=== PATIENT | female | born 1975 | race Caucasian/White ===

== ENCOUNTER 2016-11-21 19:30 | Inpatient (IN) ==
[2016-11-21] MEDS ORDERED: 0.9 % Sodium Chloride 1,000 ML IVC ONE (20:18)
--- NOTE | 2016-11-21 20:21 | Emergency Department Note ---
Disposition Clinical Impression: Somatic delusion disorder, with bizarre content Disposition: Admitted As Inpatient Condition: Good Time of Disposition: 22:00 General Adult HPI - General Chief complaint: ED Chest Pain Stated complaint: left ear/chest pain Source: patient, family Limitations: no limitations Nursing Notes Reviewed: Yes Vital Signs Reviewed: Yes - History of Present Illness HPI Narrative: History of present illness: 1-year-old female history of opioid addiction currently on Suboxone for "years" . History of low back pain which initially got a narcotic pain pills. Distant history of depression. Presents with a chief complaint of one month of about 20 pounds weight loss not feeling right", and left ear pain. She says that it she thinks there is "something in there". And is using a screwdriver to "take it out". Patient says her appetite been down but denies any vomiting fever or chills or shortness of breath. Says that she has been having palpitations over the past month intermittently without aggravating or alleviating factors. Patient although she gets her Suboxone regularly does not have a primary care provider. She said she has had "5 visits" over the past month to assess [facility] [place]. She was seen last Wednesday and they wanted her transferred to the [facility]". The patient states he got out of school early and she had a leave so she can care for her children. One of her family members jeffery rahman stated that she patient stated that "somebody put joseph into my head and she needed to get them out". Patient has not made any statements as such yet and I will continue to pursue that in order to exclude the possibility of mental health illness or psychiatric complaint symptom. Pain Scale: 7 - Related Data Allergies Allergy/AdvReac Type Severity Reaction Status Date / Time haloperidol [From Haldol] Allergy Difficulty Verified 11/21/16 19:38 Breathing All systems ED: reviewed and negative except as stated. Constitutional: Reports: weight change ENT ED: Reports: ear pain Cardiovascular: Reports: palpitations Musculoskeletal: Reports: back pain Neurological: Reports: headache Psychiatric: Reports: depression Past Medical History - Past Medical History Attestation: Yes The following information was validated with the patient. Source: patient, obtained from family Medical history: Reports: hepatitis - Social History Smoking Status: Current every day smoker Smokeless Tobacco Status: No Alcohol use: Reports: none Drug use: Reports: opiates Physical Exam - General Limitations: no limitations General appearance: alert, anxious, in distress - Head Head exam: atraumatic - Eye Eye exam: Present: normal appearance, PERRL, EOMI - ENT ENT exam: mucous membranes moist, other (Patient has obvious left ear otitis externa and what appears to be a dermatitis of the pinna. The canal is almost swollen shut with mucopurulent watery discharge out of the left ear canal.) - Neck Neck exam: Present: normal inspection, full ROM, trachea midline, lymphadenopathy (Patient has left cervical lymphadenopathy). Absent: meningismus - Chest Chest inspection: Present: normal inspection, symmetric chest wall rise - Respiratory Respiratory exam: Present: normal lung sounds bilaterally - Cardiovascular Cardiovascular exam: Present: regular rate, normal rhythm - Abdominal Exam Abdominal exam: Present: soft, Non-Tender - Extremities Exam Extremities exam: Present: normal inspection, full ROM. Absent: tenderness - Expanded Lower Extremity Exam Neurovascular/Tendon exam: Present: normal capillary refill Gait: observed and normal - Back Exam Back exam: Present: normal inspection, full ROM - Neurological Exam Neurological exam: Present: alert, oriented X3, CN II-XII intact, normal gait - Psychiatric Psychiatric exam: Present: depressed (Patient is very tearful and answers many direct questions with "I do not know".), anxious - Skin Skin exam: Present: warm, dry (She appears to have a left external ear pinna dermatitis.) Course - Reevaluation(s) Reevaluation #1: Reevaluated the patient because she was very tearful and anxious and did request some Ativan. She did state that she was admitted [id number] after her father . She was being treated for depression in the past. Had several inpatient psychiatric hospitalizations. Patient she denies homicidal suicidal ideations feels that there is electrical wires were constant side of her head and the screwdriver that she was "grounds to". She says "I sound crazy ". I offered evaluation by mental health counselors here and she is certainly comfortable with that. Disposition pending. Patient stable Time: 20:43 Reevaluation #2: ED workup is complete. Urine tox screen positive for THC. I discussed with the patient that the head CT was negative she still insists there is "something in the ear". I discussed we would get ENT referral and antibiotics. She said that maybe "1a can remove it". She certainly seems focused on something being in her ear whether it is imagined or not. We called up to the psychiatric service and they are sending down a nurse to evaluate patient. Disposition pending. Time: 21:54 Vital Signs Temperature 97.5 F L 11/21/16 19:35 Pulse Rate 102 11/21/16 19:35 Respiratory Rate 16 11/21/16 19:35 Blood Pressure 156/88 11/21/16 19:35 O2 Sat by Pulse Oximetry 99 11/21/16 19:35 Temperature 98.5 F 11/22/16 20:14 Pulse Rate 88 11/22/16 20:14 Respiratory Rate 17 11/22/16 20:14 Blood Pressure 130/73 11/22/16 20:14 O2 Sat by Pulse Oximetry 98 11/21/16 19:59 Oxygen Delivery Oxygen Delivery Room Air Medical Decision Making - Medical Records Medical records reviewed: Yes I reviewed the patient's medical records. - Lab Data Lab results reviewed: Yes I reviewed the patient's lab results. Result diagrams: 11/21/16 20:35 11/21/16 20:35 Lab Results 11/21/16 11/21/16 11/21/16 Range/Units 20:35 20:35 20:35 WBC 11.1 (4.3-11.1) K/mcL RBC 3.87 (3.82-4.97) M/mcL Hgb 12.4 (11.5-15.4) g/dL Hct 36.7 (35.3-44.9) % MCV 94.8 (83.0-100.0) fL MCH 32.0 (28.0-33.3) pg MCHC 33.8 (31.6-35.5) g/dL RDW 12.5 (11.5-14.5) % Plt Count 277 (140-400) K/mcL MPV 9.7 (9.4-12.4) fL Immature Gran % 0.5 (0-4) % Seg Neutrophils % 65.4 % Lymphocytes % 28.0 % Monocytes % 5.2 % Eosinophils % 0.4 % Basophils % 0.5 % Neutrophils # 7.3 (1.6-8.9) K/mcL Lymphocytes # 3.1 (0.6-4.6) K/mcL Monocytes # 0.6 (0.0-1.3) K/mcL Eosinophils # 0.0 (0.0-0.6) K/mcL Basophils # 0.1 (0.0-0.2) K/mcL Immature Plt Fraction 3.1 (1.1-6.1) % Sodium 143 (136-145) mEq/L Potassium 3.8 (3.5-4.5) mEq/L Chloride 106 (98-109) mEq/L Carbon Dioxide 27 (19-29) mEq/L BUN 8 (7-20) mg/dL Creatinine 0.81 (0.57-1.11) mg/dL Est GFR ( Amer) > 60 (> 60) Est GFR (Non-Af Amer) > 60 (> 60) BUN/Creatinine Ratio 10 (6-26) Glucose 114 H (70-99) mg/dL Calculated Osmolality 295 (280-300) Calcium 9.4 (8.6-10.8) mg/dL Total Bilirubin 0.8 (0.2-1.2) mg/dL Direct Bilirubin 0.4 (0.0-0.5) mg/dL Indirect Bilirubin 0.4 (0.0-1.2) mg/dL AST 31 (5-34) Units/L ALT 24 (0-55) Units/L Alkaline Phosphatase 66 (38-126) Units/L Troponin I 0.00 (0-0.03) ng/mL Serum Total Protein 7.0 (6.0-8.3) g/dL Albumin 3.8 (3.5-5.0) g/dL Globulin 3.2 (2.4-3.5) g/dL Albumin/Globulin Ratio 1.2 (1.1-2.2) TSH 0.744 (0.350-4.840) mcIU/mL Urine Color (Yellow) Urine Clarity (Clear) Urine pH (5.0-8.0) pH Units Ur Specific Henning (1.010-1.025) Urine Protein (Neg-Trace) mg/dL Urine Glucose (UA) (Normal) mg/dL Urine Ketones (Negative) mg/dL Urine Blood (Negative) Urine Nitrite (Negative) Urine Bilirubin (Negative) Urine Urobilinogen (Normal) mg/dL Ur Leukocyte Esterase (Negative) Urine Microscopic RBC (0-3) per hpf Urine Microscopic WBC (0-3) per hpf Ur Squamous Epith Cells (None-Few) per lpf Urine Bacteria (None-Few) per hpf Hyaline Casts Urine Trichomonas (None Seen) Urine Yeast Urine Test (Negative) Salicylates < 5.0 L (15-30) mg/dL Urine Opiates Screen (Rdnhlf=328) ng/mL Acetaminophen < 1.0 L (10-30) mcg/mL Ur Barbiturates Screen (Urczwj=168) ng/mL Ur Phencyclidine Scrn (Cutoff=25) ng/mL Ur Amphetamines Screen (Uszvgk=4272) ng/mL U Benzodiazepines Scrn (Wpnrul=016) ng/mL Urine Cocaine Screen (Cutoff= 300) ng/mL U Marijuana (THC) Screen (Cutoff = 50) ng/mL Ethyl Alcohol < 10 (0-10) mg/dL 11/21/16 11/21/16 11/21/16 Range/Units 21:15 21:15 21:15 WBC (4.3-11.1) K/mcL RBC (3.82-4.97) M/mcL Hgb (11.5-15.4) g/dL Hct (35.3-44.9) % MCV (83.0-100.0) fL MCH (28.0-33.3) pg MCHC (31.6-35.5) g/dL RDW (11.5-14.5) % Plt Count (140-400) K/mcL MPV (9.4-12.4) fL Immature Gran % (0-4) % Seg Neutrophils % % Lymphocytes % % Monocytes % % Eosinophils % % Basophils % % Neutrophils # (1.6-8.9) K/mcL Lymphocytes # (0.6-4.6) K/mcL Monocytes # (0.0-1.3) K/mcL Eosinophils # (0.0-0.6) K/mcL Basophils # (0.0-0.2) K/mcL Immature Plt Fraction (1.1-6.1) % Sodium (136-145) mEq/L Potassium (3.5-4.5) mEq/L Chloride (98-109) mEq/L Carbon Dioxide (19-29) mEq/L BUN (7-20) mg/dL Creatinine (0.57-1.11) mg/dL Est GFR ( Amer) (> 60) Est GFR (Non-Af Amer) (> 60) BUN/Creatinine Ratio (6-26) Glucose (70-99) mg/dL Calculated Osmolality (280-300) Calcium (8.6-10.8) mg/dL Total Bilirubin (0.2-1.2) mg/dL Direct Bilirubin (0.0-0.5) mg/dL Indirect Bilirubin (0.0-1.2) mg/dL AST (5-34) Units/L ALT (0-55) Units/L Alkaline Phosphatase (38-126) Units/L Troponin I (0-0.03) ng/mL Serum Total Protein (6.0-8.3) g/dL Albumin (3.5-5.0) g/dL Globulin (2.4-3.5) g/dL Albumin/Globulin Ratio (1.1-2.2) TSH (0.350-4.840) mcIU/mL Urine Color Yellow (Yellow) Urine Clarity Cloudy A (Clear) Urine pH 6.5 (5.0-8.0) pH Units Ur Specific Henning 1.015 (1.010-1.025) Urine Protein Negative (Neg-Trace) mg/dL Urine Glucose (UA) Normal (Normal) mg/dL Urine Ketones Negative (Negative) mg/dL Urine Blood Negative (Negative) Urine Nitrite Negative (Negative) Urine Bilirubin Negative (Negative) Urine Urobilinogen Normal (Normal) mg/dL Ur Leukocyte Esterase Large H (Negative) Urine Microscopic RBC 0-3 (0-3) per hpf Urine Microscopic WBC 30-50 H (0-3) per hpf Ur Squamous Epith Cells Many H (None-Few) per lpf Urine Bacteria None Seen (None-Few) per hpf Hyaline Casts Test Not Performed Urine Trichomonas Present A (None Seen) Urine Yeast Test Not Performed Urine Test Negative (Negative) Salicylates (15-30) mg/dL Urine Opiates Screen Negative (Nykche=487) ng/mL Acetaminophen (10-30) mcg/mL Ur Barbiturates Screen Negative (Dzbzao=518) ng/mL Ur Phencyclidine Scrn Negative (Cutoff=25) ng/mL Ur Amphetamines Screen Negative (Grifde=8997) ng/mL U Benzodiazepines Scrn Negative (Iphlpt=425) ng/mL Urine Cocaine Screen Negative (Cutoff= 300) ng/mL U Marijuana (THC) Screen Positive H (Cutoff = 50) ng/mL Ethyl Alcohol (0-10) mg/dL - Radiology Data Radiology results reviewed: Yes I reviewed the patient's radiology results. - EKG Data EKG #1 EKG attestation: Yes I reviewed and interpreted this EKG. EKG results narrative: 12-lead EKG reviewed with cardiology. Sinus tachycardia 100 bpm. Normal axis normal intervals no acute ischemic changes are noted. No acute changes compared to a prior EKG dated 04/30/2008.
[2016-11-21] MEDS ORDERED: *HR* LORazepam 2 MG/ML VIAL IVP ONE (20:32)
[2016-11-21 21:00] LABS: Basophils # 0.1 K/mcL (0.0-0.2); Basophils % 0.5 %; Eosinophils % 0.4 %; Hematocrit 36.7 % (35.3-44.9); Hemoglobin 12.4 g/dL (11.5-15.4); Immature Granulocytes % 0.5 % (0-4); Immature Platelets 3.1 % (1.1-6.1); Lymphocytes # 3.1 K/mcL (0.6-4.6); Mean Corpuscular HGB Conc 33.8 g/dL (31.6-35.5); Mean Corpuscular Volume 94.8 fL (83.0-100.0); Mean Platelet Volume 9.7 fL (9.4-12.4); Monocytes # 0.6 K/mcL (0.0-1.3); Monocytes % 5.2 %; Neutrophils # 7.3 K/mcL (1.6-8.9); Platelet Count 277 K/mcL (140-400); Red Blood Count 3.87 M/mcL (3.82-4.97); Red Cell Distribution Width 12.5 % (11.5-14.5); Segmented Neutrophils % 65.4 %
[2016-11-21 21:16] LABS: Alanine Aminotransferase 24 Units/L (0-55); Albumin 3.8 g/dL (3.5-5.0); Albumin/Globulin Ratio 1.2 (1.1-2.2); Alkaline Phosphatase 66 Units/L (38-126); Aspartate Amino Transferase 31 Units/L (5-34); BUN/Creatinine Ratio 10 (6-26); Bilirubin,Direct 0.4 mg/dL (0.0-0.5); Bilirubin,Indirect 0.4 mg/dL (0.0-1.2); Bilirubin,Total 0.8 mg/dL (0.2-1.2); Blood Urea Nitrogen 8 mg/dL (7-20); Calcium 9.4 mg/dL (8.6-10.8); Carbon Dioxide 27 mEq/L (19-29); Chloride 106 mEq/L (98-109); Globulin 3.2 g/dL (2.4-3.5); Glucose 114 mg/dL (70-99); Osmolality,Calculated 295 (280-300); Potassium 3.8 mEq/L (3.5-4.5); Sodium 143 mEq/L (136-145); eGFR For African Americans > 60 (> 60); eGFR For Non-African Americans > 60 (> 60)
[2016-11-21 21:18] LABS: Acetaminophen < 1.0 mcg/mL (10-30); Ethanol < 10 mg/dL (0-10); Salicylate < 5.0 mg/dL (15-30)
[2016-11-21 21:33] LABS: Bilirubin,Urine Negative (Negative); Blood,Urine Negative (Negative); Clarity,Urine Cloudy (Clear); Color,Urine Yellow (Yellow); Glucose,Urine (UA) Normal (Normal); Ketones,Urine Negative (Negative); Leukocyte Esterase,Urine Large (Negative); Nitrite,Urine Negative (Negative); PH,Urine 6.5 pH Units (5.0-8.0); Protein,Urine Negative (Neg-Trace); Specific Gravity,Urine 1.015 (1.010-1.025); Urobilinogen,Urine Normal (Normal)
[2016-11-21 21:36] LABS: Amphetamine Screen,Urine Negative ng/mL (Cutoff=1000); Bacteria,Urine None Seen per hpf (None-Few); Barbiturate Screen,Urine Negative ng/mL (Cutoff=200); Benzodiazepines Screen,Urine Negative ng/mL (Cutoff=200); Cannabinoid Screen,Urine Positive ng/mL (Cutoff = 50); Cocaine Screen,Urine Negative ng/mL (Cutoff= 300); Opiate Screen,Urine Negative ng/mL (Cutoff=300); Phencyclidine Screen,Urine Negative ng/mL (Cutoff=25); RBC,Urine 0-3 per hpf (0-3); Squamous Epithelial Cell,Urine Many per lpf (None-Few); WBC,Urine 30-50 per hpf (0-3)
[2016-11-21 21:38] LABS: Thyroid Stimulating Hormone 0.744 mcIU/mL (0.350-4.840)
[2016-11-21 21:45] LABS: Trichomonas,Urine Present (None Seen)
[2016-11-21] MEDS ORDERED: Mag Hydrox/Al Hydrox/Simeth 30 ML UDC PO PRN (23:41)
[2016-11-21] MEDS ORDERED: traZODone 50 MG TABLET PO PRN (23:41)
[2016-11-21] MEDS ORDERED: *HR* LORazepam 2 MG/ML VIAL IM PRN (23:41)
[2016-11-21] MEDS ORDERED: *HR* LORazepam 1 MG TABLET PO PRN (23:41)
[2016-11-21] MEDS ORDERED: MOM Conc 10 ML UD.LIQ PO PRN (23:41)
[2016-11-21] MEDS: Cortisporin *EAR* SOLN 10 ML BOTTLE LEFT EAR SCH (23:56)
[2016-11-21] MEDS: metroNIDAZOLE 500 MG TABLET PO SCH (23:56)
[2016-11-22] MEDS ORDERED: Ziprasidone 20 MG CAPSULE PO PRN (00:13)
[2016-11-22] MEDS: hydrOXYzine pamoate 25 MG CAPSULE PO PRN ×3 (05:43→17:22)
[2016-11-22] MEDS: metroNIDAZOLE 500 MG TABLET PO SCH (09:14)
[2016-11-22] MEDS: Nicotine 21 MG PATCH.TD24 TD SCH (09:14)
[2016-11-22] MEDS: Ibuprofen 400 MG TABLET PO PRN ×2 (09:25→17:22)
[2016-11-22] MEDS: Cortisporin *EAR* SOLN 10 ML BOTTLE LEFT EAR SCH ×3 (10:05→16:40)
--- NOTE | 2016-11-22 11:30 | Psychiatry History & Physical ---
Date of Encounter: 11/22/16 Time of Encounter: 11:24 History of Present Illness Patient Stated Chief Complaint: my ears hurt Medicare Admission Attestation: For traditional Medicare patients the provided hospital inpatient services are reasonable and necessary and in the case of services not specified as inpatient -only under 42 CFR 419.22 (n), that they are appropriately provided as inpatient services in accordance 42 CFR 412.3. For Critical Access Hospital the patient may reasonably be expected to be discharged or transferred to a hospital within 96 hours after admission to the Critical Access Hospital. Admitted From: Emergency Dept History of Present Illness: Ms. Sanchez is a 41 year old female who presented to the emergency department complaining of pain in her ears also on the notes from the ER shows that she presented with chest pain that was evaluated patient stated that she used a screwdriver to check her left ear over to extract sweats and. On evaluation in the emergency room patient was found positive for THC also stated that she is taking Suboxone that was verified by the nursing staff has taken twice daily and she did not pain clinic once a week. Patient reported poor sleep and weight loss and review of record showed that she has hospitalization here 1 on 2006 and 1999. 2007 she presented with his overdose on Lyrica and cocaine and alcohol patient diagnosis history his mood disorder and polysubstance abuse and personality disorder. Past Med Surg Social Fam HX - Past Medical History Medical history: hepatitis - Past Psychiatric History Psychiatric history: Reports: prior suicide attempt, previous psychiatric hospitalization, other Past psychiatric history details: hospitalized in 2006 and 2007. od on lyrica and etoh. - Social History Smoking Status: Current every day smoker Smokeless Tobacco Status: No Alcohol use: none Drug use: opiates Medications & Allergies Allergies haloperidol [From Haldol] Allergy (Verified 11/21/16 19:38) Difficulty Breathing Review of Systems Psychiatric: Reports: depression, anxiety, abnormal sleep pattern, suicidal ideation, change in appetite, auditory hallucinations Mental Status Exam Patient orientation: Yes Person, Yes Time, Yes Place Level of alertness: Sedated Patient appearance: Unkempt, Disheveled Behavior: anxious, tearful, distractible Psychomotor activity: Slowed Eye contact: Minimal Contact Mood description: Depressed, Anxious Affect description: constricted, tearful, dysphoric Speech pattern: Slowed, Slurred Speech volume: Soft/Quiet Thought process: Tangential, Disorganized Thought content: Yes Suicidal ideation, Yes Overt delusions, Yes Paranoid delusion, Yes Somatic delusion, Yes Obsessive thoughts Perceptual disturbances: Yes Auditory hallucinations Attention span: Unable to Sustain Attention Memory description: Immediate Impaired, Remote Impaired Patient reliability: Questionable Historian Intelligence estimate: Average Judgment: Limited Insight: Partial Results - Vital Signs Vital signs: Temp Pulse Resp BP Pulse Ox 98.6 F 101 20 130/82 98 11/22/16 08:17 11/22/16 08:17 11/22/16 08:17 11/22/16 08:17 11/21/16 19:59 - Labs Labs: Laboratory Last Values WBC 11.1 K/mcL (4.3-11.1) 11/21/16 20:35 RBC 3.87 M/mcL (3.82-4.97) 11/21/16 20:35 Hgb 12.4 g/dL (11.5-15.4) 11/21/16 20:35 Hct 36.7 % (35.3-44.9) 11/21/16 20:35 MCV 94.8 fL (83.0-100.0) 11/21/16 20:35 MCH 32.0 pg (28.0-33.3) 11/21/16 20:35 MCHC 33.8 g/dL (31.6-35.5) 11/21/16 20:35 RDW 12.5 % (11.5-14.5) 11/21/16 20:35 Plt Count 277 K/mcL (140-400) 11/21/16 20:35 MPV 9.7 fL (9.4-12.4) 11/21/16 20:35 Immature Gran % 0.5 % (0-4) 11/21/16 20:35 Seg Neutrophils % 65.4 % 11/21/16 20:35 Lymphocytes % 28.0 % 11/21/16 20:35 Monocytes % 5.2 % 11/21/16 20:35 Eosinophils % 0.4 % 11/21/16 20:35 Basophils % 0.5 % 11/21/16 20:35 Neutrophils # 7.3 K/mcL (1.6-8.9) 11/21/16 20:35 Lymphocytes # 3.1 K/mcL (0.6-4.6) 11/21/16 20:35 Monocytes # 0.6 K/mcL (0.0-1.3) 11/21/16 20:35 Eosinophils # 0.0 K/mcL (0.0-0.6) 11/21/16 20:35 Basophils # 0.1 K/mcL (0.0-0.2) 11/21/16 20:35 Immature Plt Fraction 3.1 % (1.1-6.1) 11/21/16 20:35 Sodium 143 mEq/L (136-145) 11/21/16 20:35 Potassium 3.8 mEq/L (3.5-4.5) 11/21/16 20:35 Chloride 106 mEq/L (98-109) 11/21/16 20:35 Carbon Dioxide 27 mEq/L (19-29) 11/21/16 20:35 BUN 8 mg/dL (7-20) 11/21/16 20:35 Creatinine 0.81 mg/dL (0.57-1.11) 11/21/16 20:35 Est GFR ( Amer) > 60 (> 60) 11/21/16 20:35 Est GFR (Non-Af Amer) > 60 (> 60) 11/21/16 20:35 BUN/Creatinine Ratio 10 (6-26) 11/21/16 20:35 Glucose 114 mg/dL (70-99) H 11/21/16 20:35 Calculated Osmolality 295 (280-300) 11/21/16 20:35 Calcium 9.4 mg/dL (8.6-10.8) 11/21/16 20:35 Total Bilirubin 0.8 mg/dL (0.2-1.2) 11/21/16 20:35 Direct Bilirubin 0.4 mg/dL (0.0-0.5) 11/21/16 20:35 Indirect Bilirubin 0.4 mg/dL (0.0-1.2) 11/21/16 20:35 AST 31 Units/L (5-34) 11/21/16 20:35 ALT 24 Units/L (0-55) 11/21/16 20:35 Alkaline Phosphatase 66 Units/L (38-126) 11/21/16 20:35 Troponin I 0.00 ng/mL (0-0.03) 11/21/16 20:35 Serum Total Protein 7.0 g/dL (6.0-8.3) 11/21/16 20:35 Albumin 3.8 g/dL (3.5-5.0) 11/21/16 20:35 Globulin 3.2 g/dL (2.4-3.5) 11/21/16 20:35 Albumin/Globulin Ratio 1.2 (1.1-2.2) 11/21/16 20:35 TSH 0.744 mcIU/mL (0.350-4.840) 11/21/16 20:35 Urine Color Yellow (Yellow) 11/21/16 21:15 Urine Clarity Cloudy (Clear) A 11/21/16 21: Urine pH 6.5 pH Units (5.0-8.0) 11/21/16 21: Ur Specific Parker 1.015 (1.010-1.025) 11/21/16 21:15 Urine Protein Negative mg/dL (Neg-Trace) 11/21/16 21: Urine Glucose (UA) Normal mg/dL (Normal) 11/21/16 21: Urine Ketones Negative mg/dL (Negative) 11/21/16 21:15 Urine Blood Negative (Negative) 11/21/16 21: Urine Nitrite Negative (Negative) 11/21/16 21: Urine Bilirubin Negative (Negative) 11/21/16 21: Urine Urobilinogen Normal mg/dL (Normal) 11/21/16 21:15 Ur Leukocyte Esterase Large (Negative) H 11/21/16 21:15 Urine Microscopic RBC 0-3 per hpf (0-3) 11/21/16 21:15 Urine Microscopic WBC 30-50 per hpf (0-3) H 11/21/16 21:15 Ur Squamous Epith Cells Many per lpf (None-Few) H 11/21/16 21:15 Urine Bacteria None Seen per hpf (None-Few) 11/21/16 21: Hyaline Casts Test Not Performed 11/21/16 21: Urine Trichomonas Present (None Seen) A 11/21/16 21:15 Urine Yeast Test Not Performed 11/21/16 21:15 Urine Test Negative (Negative) 11/21/16 21:15 Salicylates < 5.0 mg/dL (15-30) L 11/21/16 20:35 Urine Opiates Screen Negative ng/mL (Gfstvj=982) 11/21/16 21:15 Acetaminophen < 1.0 mcg/mL (10-30) L 11/21/16 20:35 Ur Barbiturates Screen Negative ng/mL (Hywvlh=071) 11/21/16 21:15 Ur Phencyclidine Scrn Negative ng/mL (Cutoff=25) 11/21/16 21:15 Ur Amphetamines Screen Negative ng/mL (Otqfrn=1463) 11/21/16 21:15 U Benzodiazepines Scrn Negative ng/mL (Exfexi=563) 11/21/16 21:15 Urine Cocaine Screen Negative ng/mL (Cutoff= 300) 11/21/16 21:15 U Marijuana (THC) Screen Positive ng/mL (Cutoff = 50) H 11/21/16 21:15 Ethyl Alcohol < 10 mg/dL (0-10) 11/21/16 20:35 Assessment and Plan (1) Somatic delusion disorder, with bizarre content Current visit: Yes Status: Acute Plan: Admit inpatient for safety and stabilization, Close observation, Suicide Precautions per unit protocol, Encourage participation in unit milieu, Group Therapy, Monitor sleep, Monitor appetite Additional Plan: After reviewing medication history was a patient she responded well in the past risperidone and gabapentin. We will start patient on risperidone 1 mg twice daily and gabapentin 300 mg 3 times daily benefits and side effects were discussed. Specifically I will start medication. Risks, benefits, side effects, alternatives discussed w/pt: Yes Patient agreeable to treatment: Yes (2) Depression with suicidal ideation Current visit: Yes Status: Acute
[2016-11-22] MEDS: SUBOXONE SL SCH ×2 (11:50→21:16)
[2016-11-22] MEDS: risperiDONE 1 MG TABLET PO SCH ×2 (13:08→21:16)
[2016-11-22] MEDS: Gabapentin 300 MG CAPSULE PO SCH ×2 (14:40→21:16)
[2016-11-23] MEDS: Ibuprofen 400 MG TABLET PO PRN (00:27)
[2016-11-23] MEDS: Cortisporin *EAR* SOLN 10 ML BOTTLE LEFT EAR SCH ×5 (01:32→20:11)
[2016-11-23] MEDS: metroNIDAZOLE 500 MG TABLET PO SCH ×3 (01:33→20:12)
[2016-11-23] MEDS: risperiDONE 1 MG TABLET PO SCH ×2 (08:57→20:12)
[2016-11-23] MEDS: Nicotine 21 MG PATCH.TD24 TD SCH (08:57)
[2016-11-23] MEDS: SUBOXONE SL SCH ×2 (08:58→20:12)
[2016-11-23] MEDS: Gabapentin 300 MG CAPSULE PO SCH ×3 (08:58→20:12)
--- NOTE | 2016-11-23 11:15 | Electrocardiograph Report ---
[facility] Test Date: 2016-11-21 Pat Name: Halina Sanchez Department: 102 Room: 1A42 Gender: F Lock Tender: Jose : 1975 Requested By: Compa Su Order Number: [id number] Reading MD: Varun Becerril MD Measurements Intervals [place] Rate: 100 P: 75 WI: 133 QRS: 70 QRSD: 86 T: 62 QT: 345 QTc: 402 Interpretive Statements SINUS TACHYCARDIA Electronically Signed On 11-23-16 11:14:01 EST by Varun Becerril MD
--- NOTE | 2016-11-23 14:08 | Psychiatry Progress Note ---
Date of Encounter: 11/23/16 Time of Encounter: 14:20 Subjective Interval history: Patient is seen for follow-up. Nursing staff report that she is displaying reducing thoughts paranoia complaining of tactile hallucination belief that something is still in her ear however she denied any suicidal or homicidal ideation or response to treatment is not adequate and she is quite important to him for inpatient admission for further psychiatric treatment. She attended groups and compliant with his medication. Review of Systems Psychiatric: Reports: depression, anxiety, abnormal sleep pattern, change in appetite, auditory hallucinations. Denies: suicidal ideation, homicidal ideation Objective: Exam Patient orientation: Yes Person, Yes Time, Yes Place Level of alertness: Sedated Patient appearance: Unkempt, Disheveled Behavior: anxious, tearful, distractible Psychomotor activity: Increased Eye contact: Minimal Contact Mood description: Depressed, Anxious Affect description: constricted, tearful, dysphoric Speech pattern: Slowed, Slurred Speech volume: Soft/Quiet Thought process: Tangential, Disorganized Thought content: No Suicidal ideation, No Homicidal ideation, Yes Overt delusions, Yes Paranoid delusion, Yes Somatic delusion, Yes Obsessive thoughts Perceptual disturbances: Yes Auditory hallucinations Judgment: Limited Insight: Partial Results - Vital Signs Vital Signs: Temp Pulse Resp BP Pulse Ox 97.9 F 116 18 137/87 98 11/23/16 08:24 11/23/16 08:24 11/23/16 08:24 11/23/16 08:24 11/21/16 19:59 Assessment and Plan (1) Somatic delusion disorder, with bizarre content Current visit: Yes Status: Acute Risks, benefits, side effects, alternatives discussed w/pt: Yes Patient agreeable to treatment: Yes (2) Depression with suicidal ideation Current visit: Yes Status: Acute Consult Discharge Plan - Plan Referrals: [facility] [Outside] (To establish in services, you may walk -in any Wednesday through Wednesday from 8:00am 12:00pm or 1:00pm 4:00pm. Your case will be opened, and you will be scheduled to see a counselor and psychiatric prescriber. )
[2016-11-24 08:41] VITALS: BP 123/85
[2016-11-24] MEDS: Cortisporin *EAR* SOLN 10 ML BOTTLE LEFT EAR SCH ×2 (08:52→14:30)
[2016-11-24] MEDS: Gabapentin 300 MG CAPSULE PO SCH (08:53)
[2016-11-24] MEDS: risperiDONE 1 MG TABLET PO SCH (08:53)
[2016-11-24] MEDS: metroNIDAZOLE 500 MG TABLET PO SCH (08:53)
[2016-11-24] MEDS: Nicotine 21 MG PATCH.TD24 TD SCH (08:53)
[2016-11-24] MEDS: SUBOXONE SL SCH (08:53)
[2016-11-24] MEDS: hydrOXYzine pamoate 25 MG CAPSULE PO PRN (11:04)
--- NOTE | 2016-11-24 13:35 | Discharge Summary ---
Date of Encounter: 11/24/16 Time of Encounter: 13:18 Diagnosis - Discharge Diagnosis (1) Somatic delusion disorder, with bizarre content Priority: Secondary Status: Acute (2) Depression with suicidal ideation Priority: Primary Status: Acute Medications - Discharge Medications Allergies haloperidol [From Haldol] Allergy (Verified 11/21/16 19:38) Difficulty Breathing Provider Date of admission: 11/23/16 15:03 Primary care physician: PCP NO Discharging clinician: Compa Su Assessment and Plan - Patient/Caregiver Discharge Instructions Activity: resume usual activities as tolerated Diet: regular diet - Follow up Plan Follow up with: Mili Barger [facility] [Outside] (To establish in services, you may walk -in any Wednesday through Wednesday from 8:00am 12:00pm or 1:00pm 4:00pm. Your case will be opened, and you will be scheduled to see a counselor and psychiatric prescriber. ) Disposition: Home, Self-Care Hospital Course Hospital course: Ms. Sanchez is a 41 as a result old female admitted for somatic delusion and suicidal ideation homicidal ideation and racing thoughts. Patient believed that there is some singing and left ear that she tried to extract was using screwdriver and damaged her ear as a result. For details of the admission please see H&P. On admission patient was evaluated and medication medication were started including Risperdal and gabapentin. Patient responded to medication she was able to sleep she was not agitated, continued to be delusional about her left ear and redirected not to touch or insert any object". Prior to discharge patient was medically stable not agitated or suicidal compliant with his medication and denied any side effects. - Time Spent with Patient Total time spent providing and/or coordinating discharge services: Less than 30 minutes Quality - Multiple Antipsychotics Patient discharged on 2 or more antipsychotic medications: No Procedures - Procedures Procedures: Medication Management, Crisis Stabilization, Supportive Therapy, Group Therapy, Psychoeducational Therapy Mental Status Exam - Mental Status Exam Patient orientation: Yes Person, Yes Time, Yes Place Level of alertness: Alert Patient appearance: Appropriate Behavior: calm, cooperative Psychomotor activity: Normal Eye contact: Maintains Eye Contact Mood description: Euthymic/stable, Anxious Affect description: congruent with mood, labile, tearful, dysphoric Speech pattern: Normal rate, Slowed, Inappropriate to situation Speech Volume: Normal, Soft/Quiet Thought process: Intact, Tangential Thought Content: No Suicidal ideation, No Homicidal ideation, Yes Paranoid delusion, Yes Somatic delusion, Yes Obsessive thoughts Perceptual Disturbances: Yes Auditory hallucinations Judgment: Fair Insight: Partial
== END 2016-11-24 14:00 | disposition home or self-care (01) | DRG 760 ==
LOC: EMEROO 19:30 → 1ANU 19:30
PROVIDERS: ADMIT Psychiatry & Neurology Psychiatry; ATTEND Psychiatry & Neurology Psychiatry